=== PATIENT | female | born 1970 | race Caucasian/White ===

== ENCOUNTER 2017-10-07 15:18 | Emergency (ER) | payer OTHER ==
[~2017-10-07] VITALS: Ht 175.3 cm; Wt 89.8 kg
[2017-10-07] MEDS ORDERED: NAPROSYN500 MG PO (16:03)
[2017-10-07 16:56] VITALS: BP 162/77
== END 2017-10-07 16:57 | disposition home or self-care (01) ==
LOC: EME 15:18
DX: S83.91XA Sprain of unspecified site of right knee, initial encounter (principal); X50.0XXA Overexertion from strenuous movement or load, initial encounter; Y93.F2 Activity, caregiving, lifting; Y99.0 Civilian activity done for income or pay; F32.9 Major depressive disorder, single episode, unspecified; F17.200 Nicotine dependence, unspecified, uncomplicated
CPT/HCPCS: 73564; 99281; 99284

== ENCOUNTER 2018-01-05 09:48 | Emergency (ER) | payer OTHER ==
[~2018-01-05] VITALS: Ht 175.3 cm; Wt 88.9 kg
[~2018-01-05 09:48] MED LIST: NAPROSYN500 MG PO
[2018-01-05] MEDS ORDERED: MOTRIN800 MG PO (11:25)
[2018-01-05] MEDS ORDERED: PERCOCET 5/31 TABLET PO (11:25)
[2018-01-05 12:02] VITALS: BP 135/78
== END 2018-01-05 12:02 | disposition home or self-care (01) ==
LOC: EME 09:48
DX: S42.252A Displaced fracture of greater tuberosity of left humerus, initial encounter for closed fracture (principal); S42.292A Other displaced fracture of upper end of left humerus, initial encounter for closed fracture; W17.89XA Other fall from one level to another, initial encounter; Y92.007 Garden or yard of unspecified non-institutional (private) residence as the place of occurrence of the external cause; F41.9 Anxiety disorder, unspecified
CPT/HCPCS: 73030; 73060; 99281; 99284; J3010

== ENCOUNTER → 2018-01-08 | Outpatient (CLI) | payer OTHER ==
[~2018-01-08] MED LIST changes: +MOTRIN800 MG PO; +PERCOCET 5/31 TABLET PO
== END | disposition home or self-care (01) ==
LOC: CDC 12:55
DX: Z01.810 Encounter for preprocedural cardiovascular examination (principal); M25.512 Pain in left shoulder; S42.232A 3-part fracture of surgical neck of left humerus, initial encounter for closed fracture; F17.210 Nicotine dependence, cigarettes, uncomplicated
CPT/HCPCS: 93000